=== PATIENT | female | born 1955 | race Caucasian/White ===

== ENCOUNTER 2018-05-25 09:56 | Inpatient (IN) | payer OTHER ==
[~2018-05-25] VITALS: Ht 154.9 cm; Wt 74.4 kg
[~2018-05-25 09:56] MED LIST: HCTZ; LEVOTHYROXINE
[2018-05-25] MEDS ORDERED: HYDR25TA6 PO (11:45)
[2018-05-25] MEDS ORDERED: METH10TA5 PO (11:45)
[2018-05-25] MEDS ORDERED: ASPIRIN 325 MG TAB PO ONE (12:30)
[2018-05-25] MEDS ORDERED: ACETAMINOPHEN 325 MG TAB PO PRN ×2 (13:00→13:30)
[2018-05-25] MEDS ORDERED: POTASSIUM CHLORIDE 50 ML IVPB ONE (13:00)
[2018-05-25] MEDS ORDERED: ONDANSETRON 4 MG INJ IV PRN ×2 (13:00→13:30)
--- NOTE | 2018-05-25 13:03 | HP ---
Date/Time of Note Date/Time of Note DATE: 05/25/18 TIME: 13:03 Assessment/Plan VTE Prophylaxis Pharmacological prophylaxis: LMWH Lines/Catheters IV [facility]ter Type [facility]from [facility] Saline Lock Assessment/Plan Hospital Course 62-year-old female with comorbidities including hypertension and hyperthyroidism who came to the emergency room with chief complaint of dizziness and was found to have underlying acute kidney injury, hypokalemia, and significant dysli pidemia. The patient will be admitted to inpatient setting for further treatment and evaluation. 1. Sudden onset of dizziness along with generalized body aches. -Etiology unclear. -Differentials include stroke, orthostasis, BPPV, ACS, versus others. -Brain CT scan negative. -Obtain brain MRI. -Obtain carotid Doppler study -Obtain orthostatic vital signs. -Obtain serial troponins and 2D echocardiogram. -Permissive hypertension until stroke is ruled out. -Neurology consult. 2. Acute kidney injury -Possible underlying chronic kidney disease -Gently hydrate the patient -Obtain renal ultrasound. -Avoid nephrotoxic medications. 3. Hypertension. -Treat blood pressure readings >220 until stroke is ruled out. -Monitor blood pressure trends. 4. Hyperthyroidism. -Resume Tapazole. 5. Dyslipidemia. -Start statins. Plan: The patient will be admitted to inpatient telemetry floor. The patient will be started on a low cholesterol diet. The patient will be started on DVT prophylaxis. The patient will remain a full code. Activities will be with assist. The rest of the patient's management will be based on the clinical course, inputs from consultants, and the results of diagnostic studies. Based on the patient's clinical presentation, she most probably requires at least 1 midnight's stay for further management and evaluation of her clinical presentation. The patient was seen in collaboration with Dr. Mendoza. Result Diagram: 05/25/18 1003 05/25/18 1003 Results 24hrs Laboratory Tests Test 05/25/18 10:03 05/25/18 11:25 White Blood Count 5.6 Red Blood Count 4.17 L Hemoglobin 13.1 Hematocrit 38.1 Mean Corpuscular Volume 91.4 Mean Corpuscular Hemoglobin 31.4 Mean Corpuscular Hemoglobin Concent 34.4 Red Cell Distribution Width 13.2 Platelet Count 202 Mean Platelet Volume 9.9 Immature Granulocytes % 0.500 H Neutrophils % 62.8 Lymphocytes % 26.2 Monocytes % 6.4 Eosinophils % 3.0 Basophils % 1.1 Nucleated Red Blood Cells % 0.0 Immature Granulocytes # 0.030 Neutrophils # 3.5 Lymphocytes # 1.5 Monocytes # 0.4 Eosinophils # 0.2 Basophils # 0.1 Nucleated Red Blood Cells # 0.0 Prothrombin Time 12.3 Prothrombin Time Ratio 1.0 INR International Normalized Ratio 0.90 Activated Partial Thromboplast Time 43.6 H Sodium Level 137 Potassium Level 3.0 L Chloride Level 91 L Carbon Dioxide Level 34 H Anion Gap 12 Blood Urea Nitrogen 14 Creatinine 1.21 H Est Glomerular Filtrat Rate mL/min 45 L Glucose Level 111 Hemoglobin A1c 6.2 H Calcium Level 10.3 H Troponin I < 0.012 Triglycerides Level 280 H Cholesterol Level 309 H LDL Cholesterol, Calculated 207 HDL Cholesterol 46 Cholesterol/HDL Ratio 6.7 Bedside Glucose 122 HPI/ROS Admit Date/Time Admit Date/Time Hx of Present Illness This is a 62-year-old female with comorbidities including hypertension and hyperthyroidism, who came to the emergency room with chief complaint of lightheadedness that started from the evening of 05/24/2018. The patient denied any precipitating factors. The patient was complaining of some nausea. The patient denied any vomiting. The patient denied any headache. The patient was complaining of generalized body aches and generalized body cramps. The patient had difficulty in ambulation. The patient denied any speech disturbances. She denied any sore throat, fevers, or chills. The patient denied any dyspnea, chest pain, or palpitations. The patient verbalized that she has been compliant with all her medications. In the emergency room, the patient's workup showed the patient has a creatinine of 1.21 with a GFR of 45. The patient was also noticed to be hypokalemic. The patient's troponins were negative. The patient's non-fasting lipid panel was unsatisfactory with triglyceride of 288, total cholesterol of 309, and LDL of 207. The patient's brain CT scan was negative for any acute findings. The patient's chest x-ray was negative. The patient's 12-lead EKG was showing normal sinus rhythm with right axis deviation. The patient was treated with a single dose of aspirin along with potassium supplements in the emergency room. The patient had a blood pressure of 194/108 upon arrival. ROS Constitutional: no complaints Eyes: no complaints ENT: no complaints Respiratory: no complaints Cardiovascular: lightheadedness Genitourinary: no complaints Musculoskeletal: other (Cramps all over the body.) Skin: no complaints Neurologic: dizziness Endocrine: no complaints Lymphatic: no complaints Psychological: no complaints Immunologic: no complaints PMH/Family/Social Past Medical History Medical History: hypertension, hyperthyroid Medications Current Medications Potassium Chloride 50 ml @ 25 mls/hr ONCE ONCE IVPB ; Start 05/25/18 at 13:00; Stop 05/25/18 at 14:59 Ondansetron HCl (Zofran Inj) 4 mg ER BRIDGE PRN IV NAUSEA/VOMITING; Start 05/25/18 at 13:00; Stop 05/26/18 at 12:59 Acetaminophen (Tylenol Tab) 650 mg ER BRIDGE PRN PO .MILD PAIN 1-3 OR TEMP; Start 05/25/18 at 13:00; Stop 05/26/18 at 12:59 Coded Allergies: No Known Allergy (Unverified , 05/25/18) Past Surgical History Past Surgical Hx: other (Tubal ligation) Social History Patient lives at home with family. Alcohol Use: none Smoking Status: Never smoker Drug Use: none Exam/Review of Systems Vital Signs Vitals Vital Signs Date Temp Pulse Resp B/P (MAP) Pulse Ox O2 O2 Flow FiO2 Time Delivery Rate 05/25/18 Nasal 2 12:24 Cannula 05/25/18 98.6 78 18 192/108 99 09:59 (136) Exam Exam General: Adequately build 62 year-old female lying in bed in no apparent distress. HEENT: Normocephalic, atraumatic. Eyes: Anicteric sclerae, conjunctivae clear. ENT: Nasal septum midline, oral mucosa moist. Neck supple, no JVD noticed. Respiratory: Bilaterally diminished breath sounds. No use of accessory muscles of respiration. No adventitious breath sounds. Cardiovascular: S1, S2 heard. No murmurs or gallops. Abdomen: Soft, nontender, and nondistended. Bowel sounds positive in all 4 quadrants. Genitourinary: Deferred. Extremities: No cyanosis, no clubbing, no edema. Peripheral pulses palpable. Neurologic: Cranial nerves II through XII grossly intact. The patient is awake, alert, and oriented. Bilateral upper extremity weakness. Skin: Normal skin turgor. No skin rashes. Additional Comments Brain CT IMPRESSION: No evidence of acute intracranial pathology. The brain is normal in appearance. CXR IMPRESSION: No evidence of acute cardiopulmonary process, allowing for low lung volumes and lordotic projection. 12-Lead EKG Normal sinus rhythm. Right axis deviation. BRANDIE VAZQUEZ NP May 25, 2018 13:03
[2018-05-25] MEDS ORDERED: NACL 0.9% 3 ML SYG IV SCH (13:30)
--- NOTE | 2018-05-25 13:54 | ERD ---
ER Documentation Chief Complaint Chief Complaint DIZZINESS SINCE YESTERDAY DENIES CP/SOB HPI Patient is a 62-year-old female with hypertension who presents with dizziness. She has headache and whole body pain. Her symptoms started yesterday. The symptoms have been constant. She has had no treatment as of yet. Her primary doctor is Dr. Stubbs. ROS All systems reviewed and are negative except as per history of present illness. Medications Home Meds Reported Medications Methimazole* (Methimazole*) 10 Mg Tablet, 10 MG PO TID, TAB 05/25/18 Hydrochlorothiazide* (Hydrochlorothiazide*) 25 Mg Tab, 25 MG PO DAILY, #30 TAB 05/25/18 Discontinued Reported Medications [Levothyroxine] No Conflict Check 01/07/15 [Hctz] No Conflict Check 01/07/15 Allergies Allergies: Coded Allergies: No Known Allergy (Unverified , 05/25/18) PMhx/Soc History of Surgery: Yes (TUBAL LIGATION) Anesthesia Reaction: No Hx Neurological Disorder: No Hx Respiratory Disorders: No Hx Cardiac Disorders: Yes (HTN) Hx Psychiatric Problems: No Hx Miscellaneous Medical Probl: No Hx Alcohol Use: No Hx Substance Use: No Hx Tobacco Use: No Smoking Status: Never smoker FmHx Family History: No diabetes Physical Exam Vitals Vital Signs Date Temp Pulse Resp B/P (MAP) Pulse Ox O2 O2 Flow FiO2 Time Delivery Rate 05/25/18 Nasal 2 12:24 Cannula 05/25/18 98.6 78 18 192/108 99 09:59 (136) Physical Exam Const: Moderate distress secondary to pain Head: Atraumatic Eyes: Normal Conjunctiva ENT: Normal External Ears, Nose and Mouth. Neck: Full range of motion. No meningismus. Resp: Clear to auscultation bilaterally Cardio: Regular rate and rhythm, no murmurs Abd: Soft, non tender, non distended. Normal bowel sounds Skin: No petechiae or rashes Back: No midline or flank tenderness Ext: No cyanosis, or edema Neur: Awake and alert, diffuse weakness, dizziness, cranial nerves II through XII are intact, no focal weakness seen Result Diagram: 05/25/18 1003 05/25/18 1003 Results 24 hrs Laboratory Tests Test 05/25/18 10:03 05/25/18 11:25 White Blood Count 5.6 10^3/ul Red Blood Count 4.17 10^6/ul Hemoglobin 13.1 g/dl Hematocrit 38.1 % Mean Corpuscular Volume 91.4 fl Mean Corpuscular Hemoglobin 31.4 pg Mean Corpuscular Hemoglobin Concent 34.4 g/dl Red Cell Distribution Width 13.2 % Platelet Count 202 10^3/UL Mean Platelet Volume 9.9 fl Immature Granulocytes % 0.500 % Neutrophils % 62.8 % Lymphocytes % 26.2 % Monocytes % 6.4 % Eosinophils % 3.0 % Basophils % 1.1 % Nucleated Red Blood Cells % 0.0 /100WBC Immature Granulocytes # 0.030 10^3/ul Neutrophils # 3.5 10^3/ul Lymphocytes # 1.5 10^3/ul Monocytes # 0.4 10^3/ul Eosinophils # 0.2 10^3/ul Basophils # 0.1 10^3/ul Nucleated Red Blood Cells # 0.0 10^3/ul Prothrombin Time 12.3 Sec Prothrombin Time Ratio 1.0 INR International Normalized Ratio 0.90 Activated Partial Thromboplast Time 43.6 Sec Sodium Level 137 mmol/L Potassium Level 3.0 mmol/L Chloride Level 91 mmol/L Carbon Dioxide Level 34 mmol/L Anion Gap 12 Blood Urea Nitrogen 14 mg/dl Creatinine 1.21 mg/dl Est Glomerular Filtrat Rate mL/min 45 mL/min Glucose Level 111 mg/dl Hemoglobin A1c 6.2 % Calcium Level 10.3 mg/dl Troponin I < 0.012 ng/ml Triglycerides Level 280 mg/dl Cholesterol Level 309 mg/dl LDL Cholesterol, Calculated 207 mg/dl HDL Cholesterol 46 mg/dl Cholesterol/HDL Ratio 6.7 RATIO Bedside Glucose 122 mg/dL Current Medications Medications Dose Sig/Jan Start Time Status Last (Trade) Ordered Route PRN Stop Time Admin Dose Reason Admin Aspirin 325 mg ONCE ONCE 05/25/18 DC 05/25/18 (Aspirin) PO 12:30 05/25/18 13:22 12:31 Potassium 50 ml @ 25 ONCE ONCE 05/25/18 Chloride mls/hr IVPB 13:00 05/25/18 14:59 Ondansetron 4 mg ER BRIDGE 05/25/18 HCl (Zofran PRN IV 13:00 05/26/18 Inj) NAUSEA/VOMITI 12:59 NG 650 mg ER BRIDGE 05/25/18 Acetaminophen PRN PO 13:00 05/26/18 (Tylenol .MILD PAIN 12:59 Tab) 1-3 OR TEMP IV Flush 3 ml PER 05/25/18 (NS 3 ml) PROTOCOL IV 13:30 Ondansetron 4 mg Q6H PRN 05/25/18 HCl (Zofran IV 13:30 Inj) NAUSEA/VOMITI NG Aspirin 81 mg DAILY PO 05/26/18 (Aspirin) 09:00 650 mg Q6H PRN 05/25/18 Acetaminophen PO .PAIN 1-3 13:30 (Tylenol OR TEMP Tab) Enoxaparin 40 mg DAILY SC 05/26/18 Sodium 09:00 (Lovenox) 80 mg HS PO 05/25/18 Atorvastatin 21:00 Calcium (Lipitor) Procedures/MDM CT brain read by radiology EKG read by me: Rate/Rhythm: Regular rate and rhythm at a normal rate Intervals: Normal Impression: No evidence of ischemia or arrhythmia Patient is a 62-year-old female who presents with dizziness. I am concerned for possible posterior circulation stroke. She had a bedside swallow evaluation and NIH stroke scale performed by nursing. She was given aspirin after CT brain shows no sign of bleed. I doubt intracranial hemorrhage or mass. The patient will be admitted to the telemetry floor for further evaluation. The patient will be admitted to the panel team. She was found to have hypokalemia with a potassium of 3.0 and was given IV potassium. She is outside the window for TPA as she said that her symptoms started yesterday and there was no clear time of onset. She is also not a candidate for interventional procedure with an unclear time of onset and likely greater than 24 hours since the start of symptoms. Critical Care: Time: 35 minutes excluding all billable procedures. Treatments/Evaluations: Close monitoring and treatment of unstable vital signs, cardiorespiratory, and neurologic status, while maintaining tight balance of fluid, respiratory, and cardiac interventions. Departure Diagnosis: Primary Impression: Hypokalemia Additional Impression: Stroke CVA mechanism: unspecified Qualified Codes: I63.9 - Cerebral infarction, unspecified TG BOWER MD May 25, 2018 13:54
[2018-05-25] MEDS ORDERED: POTASSIUM CHLORIDE 100 ML IVPB SCH (14:00)
--- NOTE | 2018-05-25 15:58 | CONS ---
Assessment/Plan Assessment/Plan Hospital Course 62 F c/ reported Hx of HTN, who presents for evaluation of dizziness...for which neurology is consulted.. The clinical picture is consistent w/ vertigo...the underlying etiology of which could very well be a acute cerebrovascular event.. Peripheral vertigo is a Dx of exclusion... Head CT is unrevealing LDL 207 (nonfasting) P: MRI brain for further characterization asa/lipitor daily pending the above Add fasting lipid panel to am labs..., UA, UDS Permissive HTN to 220/110 today.. Trial of low dose meclizine tid for now.. Other management per primary Will follow clinically, to recommend additional neurologic studies as necessary Consultation Date/Type/Reason Admit Date/Time Type of Consult Neurology Reason for Consultation vertigo Requesting Provider: BRANDIE VAZQUEZ NP Date/Time of Note DATE: 05/25/18 TIME: 15:48 Hx of Present Illness 62 yo F with hx of HTN and hypothyroidism who presented to the ED for evaluation of headache and vertigo. History was obtained from pt and chart review. The pt states that her dizziness started around 11pm last night when trying to get up to go to the restroom. She states that it came on suddenly, and described it as if the room was spinning. She stated that when her sx continued to persist, she had her bring her to the ED. She states that the dizziness is constant, and made worse with head turning and position changes. Denies any alleviating factors. She also endorses abdominal cramping and generalized weakness. She denies headache at this time, confusion, vision or speech changes, numbness or tingling. She also denies past episodes of vertigo, recent illness, illicit drug use or changes in medications. The pt is also hypertensive on arrival (192/108).. It is additionally elsewhere noted: HPI Patient is a 62-year-old female with hypertension who presents with dizziness. She has headache and whole body pain. Her symptoms started yesterday. The symptoms have been constant. She has had no treatment as of yet. Her primary doctor is Dr. Stubbs. negative unless noted otherwise in HPI Exam/Review of Systems Exam Vitals Vital Signs Date Temp Pulse Resp B/P (MAP) Pulse Ox O2 O2 Flow FiO2 Time Delivery Rate 05/25/18 57 17 168/103 98 Room Air 14:32 (124) 05/25/18 98.7 14:05 05/25/18 2 12:24 Exam PE: Gen Appearance: No Apparent Distress HEENT: Normocephalic Cardiovascular: Regular rate Abdomen: Soft Extremities: Dry NE: The patient was alert and oriented.. Language was normal. Fund of knowledge was normal. Pupils were equal and reactive to light. There was no afferent pupillary defect. Visual reeves were normal. Funduscopic examination was limited. Extra-ocular movements were full. Ptosis was absent. There was no nystagmus. Facial sensation was normal. Face was symmetric with normal strength. Hearing was intact. Palate movements were normal. Neck strength was normal. There was normal tongue bulk and speed of movement. Tone was normal. Muscle bulk was normal. I did not see fasciculations. Moderate, generalized weakness was present. Vibration sensation was normal. Temperature and pinprick sensation was normal. Rapid alternating movements were normal. There was no dysmetria. There was no intention tremor. Gait was deferred due to bedrest. Arm and leg reflexes were 2+ and symmetric. Ahuja's sign was absent. Plantar responses were flexor. Results Result Diagram: 05/25/18 1003 05/25/18 1003 Results 24hrs Laboratory Tests Test 05/25/18 10:03 05/25/18 11:25 White Blood Count 5.6 Red Blood Count 4.17 L Hemoglobin 13.1 Hematocrit 38.1 Mean Corpuscular Volume 91.4 Mean Corpuscular Hemoglobin 31.4 Mean Corpuscular Hemoglobin Concent 34.4 Red Cell Distribution Width 13.2 Platelet Count 202 Mean Platelet Volume 9.9 Immature Granulocytes % 0.500 H Neutrophils % 62.8 Lymphocytes % 26.2 Monocytes % 6.4 Eosinophils % 3.0 Basophils % 1.1 Nucleated Red Blood Cells % 0.0 Immature Granulocytes # 0.030 Neutrophils # 3.5 Lymphocytes # 1.5 Monocytes # 0.4 Eosinophils # 0.2 Basophils # 0.1 Nucleated Red Blood Cells # 0.0 Prothrombin Time 12.3 Prothrombin Time Ratio 1.0 INR International Normalized Ratio 0.90 Activated Partial Thromboplast Time 43.6 H Sodium Level 137 Potassium Level 3.0 L Chloride Level 91 L Carbon Dioxide Level 34 H Anion Gap 12 Blood Urea Nitrogen 14 Creatinine 1.21 H Est Glomerular Filtrat Rate mL/min 45 L Glucose Level 111 Hemoglobin A1c 6.2 H Calcium Level 10.3 H Troponin I < 0.012 Triglycerides Level 280 H Cholesterol Level 309 H LDL Cholesterol, Calculated 207 HDL Cholesterol 46 Cholesterol/HDL Ratio 6.7 Bedside Glucose 122 Medications Medication Current Medications Ondansetron HCl (Zofran Inj) 4 mg ER BRIDGE PRN IV NAUSEA/VOMITING; Start 05/25/18 at 13:00; Stop 05/26/18 at 12:59 Acetaminophen (Tylenol Tab) 650 mg ER BRIDGE PRN PO .MILD PAIN 1-3 OR TEMP; Start 05/25/18 at 13:00; Stop 05/26/18 at 12:59 IV Flush (NS 3 ml) 3 ml PER PROTOCOL IV ; Start 05/25/18 at 13:30 Ondansetron HCl (Zofran Inj) 4 mg Q6H PRN IV NAUSEA/VOMITING; Start 05/25/18 at 13:30 Aspirin (Aspirin) 81 mg DAILY PO ; Start 05/26/18 at 09:00 Acetaminophen (Tylenol Tab) 650 mg Q6H PRN PO .PAIN 1-3 OR TEMP; Start 05/25/18 at 13:30 Enoxaparin Sodium (Lovenox) 40 mg DAILY SC ; Start 05/26/18 at 09:00 Atorvastatin Calcium (Lipitor) 80 mg HS PO ; Start 05/25/18 at 21:00 Potassium Chloride 100 ml @ 50 mls/hr ONCE IVPB Last administered on 05/25/18at 14:21; Admin Dose 50 MLS/HR; Start 05/25/18 at 14:00; Stop 05/25/18 at 15:59 Sodium Chloride 1,000 ml @ 75 mls/hr [id number] IV ; Start 05/25/18 at 16:00; Status UNV Methimazole (Tapazole) 10 mg TID PO ; Start 05/25/18 at 21:00; Status UNV Past Medical History reviewed Home Meds Reported Medications Methimazole* (Methimazole*) 10 Mg Tablet, 10 MG PO TID, TAB 05/25/18 Hydrochlorothiazide* (Hydrochlorothiazide*) 25 Mg Tab, 25 MG PO DAILY, #30 TAB 05/25/18 Discontinued Reported Medications [Levothyroxine] No Conflict Check 01/07/15 [Hctz] No Conflict Check 01/07/15 Medications Current Medications Ondansetron HCl (Zofran Inj) 4 mg ER BRIDGE PRN IV NAUSEA/VOMITING; Start 05/25/18 at 13:00; Stop 05/26/18 at 12:59 Acetaminophen (Tylenol Tab) 650 mg ER BRIDGE PRN PO .MILD PAIN 1-3 OR TEMP; Start 05/25/18 at 13:00; Stop 05/26/18 at 12:59 IV Flush (NS 3 ml) 3 ml PER PROTOCOL IV ; Start 05/25/18 at 13:30 Ondansetron HCl (Zofran Inj) 4 mg Q6H PRN IV NAUSEA/VOMITING; Start 05/25/18 at 13:30 Aspirin (Aspirin) 81 mg DAILY PO ; Start 05/26/18 at 09:00 Acetaminophen (Tylenol Tab) 650 mg Q6H PRN PO .PAIN 1-3 OR TEMP; Start 05/25/18 at 13:30 Enoxaparin Sodium (Lovenox) 40 mg DAILY SC ; Start 05/26/18 at 09:00 Atorvastatin Calcium (Lipitor) 80 mg HS PO ; Start 05/25/18 at 21:00 Potassium Chloride 100 ml @ 50 mls/hr ONCE IVPB Last administered on 05/25/18at 14:21; Admin Dose 50 MLS/HR; Start 05/25/18 at 14:00; Stop 05/25/18 at 15:59 Sodium Chloride 1,000 ml @ 75 mls/hr [id number] IV ; Start 05/25/18 at 16:00; Status UNV Methimazole (Tapazole) 10 mg TID PO ; Start 05/25/18 at 21:00; Status UNV Allergies: Coded Allergies: No Known Allergy (Unverified , 05/25/18) Past Surgical History reviewed Social History reviewed Smoking Status: Never smoker DALIA IBARRA NP May 25, 2018 15:58 MARI WAN May 25, 2018 17:00
[2018-05-25] MEDS ORDERED: hydrALAzine 20 MG INJ IV PRN (16:00)
[2018-05-25] MEDS ORDERED: SOD CHLORIDE 0.9% 1,000 ML IV SCH (16:00)
[2018-05-25 19:35] VITALS: BP 171/98; PULSE 60; RESP 18
[2018-05-25 19:49] VITALS: PULSE 74
[2018-05-25 20:00] VITALS: PULSE 66
[2018-05-25] MEDS ORDERED: ATORVASTATIN 80 MG TAB PO SCH (21:00)
[2018-05-25] MEDS: MECLIZINE 12.5 MG TAB PO SCH (21:05)
[2018-05-25 22:21] VITALS: PULSE 62
[2018-05-25 23:17] VITALS: PULSE 68
[2018-05-25 23:58] VITALS: BP 134/80; PULSE 61; RESP 18
[2018-05-26] VITALS (14 sets, daily range): BP systolic 135–164; BP diastolic 90–103; PULSE 60–82; RESP 16–18
[2018-05-26] MEDS: METHIMAZOLE 5 MG TAB PO SCH ×2 (03:18→08:28)
[2018-05-26] MEDS: ASPIRIN 81 MG TAB PO SCH (08:28)
[2018-05-26] MEDS: MECLIZINE 12.5 MG TAB PO SCH ×3 (08:28→20:48)
[2018-05-26] MEDS: ENOXAPARIN 40 MG/0.4 ML SYG SC SCH (08:44)
--- NOTE | 2018-05-26 13:02 | PN ---
Date/Time of Note Date/Time of Note DATE: 05/26/18 TIME: 13:00 Assessment/Plan VTE Prophylaxis Risk score (from Ns)>0 risk: 4 SCD applied (from Nsg): Yes Pharmacological prophylaxis: LMWH Lines/Catheters IV Catheter Type (from Nrs): Saline Lock Urinary Cath still in place: No Assessment/Plan Hospital Course SUBJECTIVE: The patient verbalized that the dizziness has improved. OBJECTIVE: Physical Exam General: Adequately build 62 year-old female lying in bed in no apparent distress. HEENT: Normocephalic, atraumatic. Eyes: Anicteric sclerae, conjunctivae clear. ENT: Nasal septum midline, oral mucosa moist. Neck supple, no JVD noticed. Respiratory: Bilaterally diminished breath sounds. No use of accessory muscles of respiration. No adventitious breath sounds. Cardiovascular: S1, S2 heard. No murmurs or gallops. Abdomen: Soft, nontender, and nondistended. Bowel sounds positive in all 4 quadrants. Genitourinary: Deferred. Extremities: No cyanosis, no clubbing, no edema. Peripheral pulses palpable. Neurologic: Cranial nerves II through XII grossly intact. The patient is awake, alert, and oriented. Bilateral upper extremity weakness. Skin: Normal skin turgor. No skin rashes. Labs & Vitals per chart ASSESSMENT & PLAN 62-year-old female with comorbidities including hypertension and hyperthyroidism who came to the emergency room with chief complaint of dizziness and was found to have underlying acute kidney injury, hypokalemia, and significant dyslipidemia. The patient was admitted to inpatient setting for further treatment and evaluation. 1. Sudden onset of dizziness along with generalized body aches. -Etiology unclear. -Neurology following. -Brain CT and MRI negative. -No evidence of any orthostatic hypotension. -Pending 2D echocardiogram. -Carotid Doppler study negative for any hemodynamically significant stenosis. -Continue meclizine for underlying vertigo. -Continue physical therapy. 2. Rhabdomyolysis. -Continue IV hydration. -Hold statins. 3. Dyslipidemia. -Fasting lipid panel showing elevated triglycerides, elevated total cholesterol, and significantly high LDL. -Statin on hold because of underlying rhabdomyolysis. 4. Acute kidney injury -Improving. -Renal ultrasound negative for any medical renal disease. -Avoid nephrotoxic medications. 5. Hypertension. -Resume antihypertensives and stroke has been ruled out. 6. Reported history of hyperthyroidism. -Labs show evidence of hypothyroidism -Hold Tapazole. -Obtain endocrinology consult. 7. Prediabetes. -Hemoglobin A1c 6.2 -Monitor glycemic trends. -Recommend low carbohydrate diet. 8. Fluids, electrolytes, and nutrition. -Low-cholesterol diet. 9. DVT prophylaxis. -Subcutaneous Lovenox. 10. Plan. -Continue aspirin. -Hold statins because of underlying rhabdomyolysis -Continue IV hydration -Obtain endocrinology evaluation. -Continue physical therapy. Plan of care was explained to the patient with the help of a licensed plumber. The patient was seen in collaboration with Dr. Mendoza. Result Diagram: 05/26/18 0500 05/26/18 0500 Results 24hrs Laboratory Tests Test 05/25/18 16:21 05/25/18 16:40 05/26/18 05:00 Magnesium Level 2.0 2.2 Creatine Kinase 1314 H 1136 H Creatine Kinase Index 0.9 1.0 Creatinine Kinase MB (Mass) 12.30 H 10.80 H Troponin I < 0.012 < 0.012 B-Type Natriuretic Peptide 37 Thyroid Stimulating Hormone (TSH) 303.000 H Free Thyroxine < 0.07 L Urine Color STRAW Urine Clarity CLEAR Urine pH 8 Urine Specific [place] 1.005 Urine Ketones NEGATIVE Urine Nitrite NEGATIVE Urine Bilirubin NEGATIVE Urine Urobilinogen 0.2 E.U./dL Urine Leukocyte Esterase 2+ H Urine Microscopic RBC 1 Urine Microscopic WBC 2 Urine Bacteria FEW A Urine Hemoglobin NEGATIVE Urine Glucose NEGATIVE Urine Total Protein 1+ Urine Opiates Screen Negative Urine Barbiturates Negative Urine Amphetamines Screen Negative Urine Benzodiazepines Screen Negative Urine Cocaine Screen Negative Urine Cannabinoids Negative White Blood Count 6.8 # Red Blood Count 4.26 Hemoglobin 13.5 Hematocrit 39.0 Mean Corpuscular Volume 91.5 Mean Corpuscular Hemoglobin 31.7 Mean Corpuscular Hemoglobin Concent 34.6 Red Cell Distribution Width 13.2 Platelet Count 204 Mean Platelet Volume 10.1 Immature Granulocytes % 0.100 Neutrophils % 55.0 Lymphocytes % 31.1 Monocytes % 8.1 Eosinophils % 4.7 Basophils % 1.0 Nucleated Red Blood Cells % 0.0 Immature Granulocytes # 0.010 Neutrophils # 3.7 Lymphocytes # 2.1 Monocytes # 0.6 Eosinophils # 0.3 Basophils # 0.1 Nucleated Red Blood Cells # 0.0 Sodium Level 139 Potassium Level 3.2 L Chloride Level 99 Carbon Dioxide Level 28 Anion Gap 12 Blood Urea Nitrogen 15 Creatinine 1.25 H Est Glomerular Filtrat Rate mL/min 43 L Glucose Level 101 Calcium Level 10.0 Phosphorus Level 3.7 Triglycerides Level 294 H Cholesterol Level 304 H LDL Cholesterol, Calculated 203 HDL Cholesterol 42 Cholesterol/HDL Ratio 7.2 Exam/Review of Systems Exam Vitals Vital Signs Date Temp Pulse Resp B/P (MAP) Pulse Ox O2 O2 Flow FiO2 Time Delivery Rate 05/26/18 98.7 73 18 135/92 98 Room Air 11:49 (106) 05/25/18 2 12:24 Results Results 24hrs Laboratory Tests Test 05/25/18 16:21 05/25/18 16:40 05/26/18 05:00 Magnesium Level 2.0 2.2 Creatine Kinase 1314 H 1136 H Creatine Kinase Index 0.9 1.0 Creatinine Kinase MB (Mass) 12.30 H 10.80 H Troponin I < 0.012 < 0.012 B-Type Natriuretic Peptide 37 Thyroid Stimulating Hormone (TSH) 303.000 H Free Thyroxine < 0.07 L Urine Color STRAW Urine Clarity CLEAR Urine pH 8 Urine Specific [place] 1.005 Urine Ketones NEGATIVE Urine Nitrite NEGATIVE Urine Bilirubin NEGATIVE Urine Urobilinogen 0.2 E.U./dL Urine Leukocyte Esterase 2+ H Urine Microscopic RBC 1 Urine Microscopic WBC 2 Urine Bacteria FEW A Urine Hemoglobin NEGATIVE Urine Glucose NEGATIVE Urine Total Protein 1+ Urine Opiates Screen Negative Urine Barbiturates Negative Urine Amphetamines Screen Negative Urine Benzodiazepines Screen Negative Urine Cocaine Screen Negative Urine Cannabinoids Negative White Blood Count 6.8 # Red Blood Count 4.26 Hemoglobin 13.5 Hematocrit 39.0 Mean Corpuscular Volume 91.5 Mean Corpuscular Hemoglobin 31.7 Mean Corpuscular Hemoglobin Concent 34.6 Red Cell Distribution Width 13.2 Platelet Count 204 Mean Platelet Volume 10.1 Immature Granulocytes % 0.100 Neutrophils % 55.0 Lymphocytes % 31.1 Monocytes % 8.1 Eosinophils % 4.7 Basophils % 1.0 Nucleated Red Blood Cells % 0.0 Immature Granulocytes # 0.010 Neutrophils # 3.7 Lymphocytes # 2.1 Monocytes # 0.6 Eosinophils # 0.3 Basophils # 0.1 Nucleated Red Blood Cells # 0.0 Sodium Level 139 Potassium Level 3.2 L Chloride Level 99 Carbon Dioxide Level 28 Anion Gap 12 Blood Urea Nitrogen 15 Creatinine 1.25 H Est Glomerular Filtrat Rate mL/min 43 L Glucose Level 101 Calcium Level 10.0 Phosphorus Level 3.7 Triglycerides Level 294 H Cholesterol Level 304 H LDL Cholesterol, Calculated 203 HDL Cholesterol 42 Cholesterol/HDL Ratio 7.2 Medications Medication Current Medications Ondansetron HCl (Zofran Inj) 4 mg ER BRIDGE PRN IV NAUSEA/VOMITING; Start 05/25/18 at 13:00; Stop 05/26/18 at 12:59 Acetaminophen (Tylenol Tab) 650 mg ER BRIDGE PRN PO .MILD PAIN 1-3 OR TEMP; Start 05/25/18 at 13:00; Stop 05/26/18 at 12:59 IV Flush (NS 3 ml) 3 ml PER PROTOCOL IV ; Start 05/25/18 at 13:30 Ondansetron HCl (Zofran Inj) 4 mg Q6H PRN IV NAUSEA/VOMITING; Start 05/25/18 at 13:30 Aspirin (Aspirin) 81 mg DAILY PO Last administered on 05/26/18 08:28; Admin Dose 81 MG; Start 05/26/18 at 09:00 Acetaminophen (Tylenol Tab) 650 mg Q6H PRN PO .PAIN 1-3 OR TEMP; Start 05/25/18 at 13:30 Enoxaparin Sodium (Lovenox) 40 mg DAILY SC Last administered on 05/26/18 08:44; Admin Dose 40 MG; Start 05/26/18 at 09:00 Atorvastatin Calcium (Lipitor) 80 mg HS PO Last administered on 05/25/18at 21:05; Admin Dose 80 MG; Start 05/25/18 at 21:00 Methimazole (Tapazole) 10 mg TID PO Last administered on 05/26/18 08:28; Admin Dose 10 MG; Start 05/25/18 at 21:00 Hydralazine HCl (Apresoline) 10 mg Q6H PRN IV SBP>220; Start 05/25/18 at 16:00 Meclizine HCl (Antivert) 12.5 mg TID PO Last administered on 05/26/18 08:28; Admin Dose 12.5 MG; Start 05/25/18 at 21:00 BRANDIE VAZQUEZ NP May 26, 2018 13:02
--- NOTE | 2018-05-26 14:27 | CONS ---
Assessment/Plan Assessment/Plan Problems: (1) Myxedema Status: Acute Comment: What is unclear is what her baseline thyroid status and an untreated situation. Regardless she needs to be treated with levothyroxine at this time as she has myxedema. I will get her started on treatment this is a follow-up that would be the vexing piece of this. Is treated by Dr. Momin's at [facility]. (2) Hyperlipidemia Status: Acute Comment: This is due to myxedema (3) HTN (hypertension) Status: Acute Comment: This is aggravated by myxedema Qualifiers: Qualified Codes: I10 - Essential (primary) hypertension Consultation Date/Type/Reason Admit Date/Time Date of Consultation: May 26, 2018 Type of Consult Endocrinology Reason for Consultation Myxedema Requesting Provider: BRANDIE VAZQUEZ NP Date/Time of Note DATE: 05/26/18 TIME: 14:20 Hx of Present Illness Patient reports a 10-year history of being treated for thyroid disease. She is unclear on the medications but recently has been on methimazole 10 mg once a day in the morning. She is otherwise not able to give meaningful information. I checked with [facility] and found the following information. She had TSH on January 17 of 0.05 on January 19 0.09 in February 06 0.15 her free T4 on those respective dates was 1.5 then 1.4 then 1.2 she has a thyroid positive thyroid peroxidase antibody at this time she is admitted having gone into myxedema state on the methimazole. Constitutional: no complaints Eyes: no complaints ENT: no complaints Endocrine: other (She has essentially has all symptoms consistent with hypoth yroidism. Curiously she has no recollection of any symptoms consistent with thyrotoxicosis) Past Medical History Medical History: high cholesterol, hypertension, hyperthyroid Home Meds Reported Medications Methimazole* (Methimazole*) 10 Mg Tablet, 10 MG PO TID, TAB 05/25/18 Hydrochlorothiazide* (Hydrochlorothiazide*) 25 Mg Tab, 25 MG PO DAILY, #30 TAB 05/25/18 Discontinued Reported Medications [Levothyroxine] No Conflict Check 01/07/15 [Hctz] No Conflict Check 01/07/15 Medications Current Medications IV Flush (NS 3 ml) 3 ml PER PROTOCOL IV ; Start 05/25/18 at 13:30 Ondansetron HCl (Zofran Inj) 4 mg Q6H PRN IV NAUSEA/VOMITING; Start 05/25/18 at 13:30 Aspirin (Aspirin) 81 mg DAILY PO Last administered on 05/26/18at 08:28; Admin Dose 81 MG; Start 05/26/18 at 09:00 Acetaminophen (Tylenol Tab) 650 mg Q6H PRN PO .PAIN 1-3 OR TEMP; Start 05/25/18 at 13:30 Enoxaparin Sodium (Lovenox) 40 mg DAILY SC Last administered on 05/26/18at 08:44; Admin Dose 40 MG; Start 05/26/18 at 09:00 Atorvastatin Calcium (Lipitor) 80 mg HS PO Last administered on 05/25/18at 21:05; Admin Dose 80 MG; Start 05/25/18 at 21:00; Status Hold Hydralazine HCl (Apresoline) 10 mg Q6H PRN IV SBP>160; Start 05/25/18 at 16:00 Meclizine HCl (Antivert) 12.5 mg TID PO Last administered on 05/26/18at 08:28; Admin Dose 12.5 MG; Start 05/25/18 at 21:00 Sodium Chloride 1,000 ml @ 75 mls/hr [id number] IV ; Start 05/26/18 at 13:00 Amlodipine Besylate (Norvasc) 2.5 mg DAILY PO ; Start 05/26/18 at 13:30 Allergies: Coded Allergies: No Known Allergy (Unverified , 05/25/18) Past Surgical History Past Surgical Hx: other (Tubal ligation) Social History Alcohol Use: none Smoking Status: Never smoker Drug Use: none Exam/Review of Systems Exam Vitals Vital Signs Date Temp Pulse Resp B/P (MAP) Pulse Ox O2 O2 Flow FiO2 Time Delivery Rate 05/26/18 82 12:01 05/26/18 98.7 18 135/92 98 Room Air 11:49 (106) 05/25/18 2 12:24 Exam Gravelly voice Constitutional: alert, oriented Neck: supple, thyromegaly (Firm thyroid gland without nodules) Respiratory: clear to auscultation, normal air movement Cardiovascular: regular rate and rhythm, nl pulses Gastrointestinal: soft, nl liver, spleen, non-tender Skin: other (Thickened and dry) Results Result Diagram: 05/26/18 0500 05/26/18 0500 Results 24hrs Laboratory Tests Test 05/25/18 16:21 05/25/18 16:40 05/26/18 05:00 Magnesium Level 2.0 2.2 Creatine Kinase 1314 H 1136 H Creatine Kinase Index 0.9 1.0 Creatinine Kinase MB (Mass) 12.30 H 10.80 H Troponin I < 0.012 < 0.012 B-Type Natriuretic Peptide 37 Thyroid Stimulating Hormone (TSH) 303.000 H Free Thyroxine < 0.07 L Urine Color STRAW Urine Clarity CLEAR Urine pH 8 Urine Specific [place] 1.005 Urine Ketones NEGATIVE Urine Nitrite NEGATIVE Urine Bilirubin NEGATIVE Urine Urobilinogen 0.2 E.U./dL Urine Leukocyte Esterase 2+ H Urine Microscopic RBC 1 Urine Microscopic WBC 2 Urine Bacteria FEW A Urine Hemoglobin NEGATIVE Urine Glucose NEGATIVE Urine Total Protein 1+ Urine Opiates Screen Negative Urine Barbiturates Negative Urine Amphetamines Screen Negative Urine Benzodiazepines Screen Negative Urine Cocaine Screen Negative Urine Cannabinoids Negative White Blood Count 6.8 # Red Blood Count 4.26 Hemoglobin 13.5 Hematocrit 39.0 Mean Corpuscular Volume 91.5 Mean Corpuscular Hemoglobin 31.7 Mean Corpuscular Hemoglobin Concent 34.6 Red Cell Distribution Width 13.2 Platelet Count 204 Mean Platelet Volume 10.1 Immature Granulocytes % 0.100 Neutrophils % 55.0 Lymphocytes % 31.1 Monocytes % 8.1 Eosinophils % 4.7 Basophils % 1.0 Nucleated Red Blood Cells % 0.0 Immature Granulocytes # 0.010 Neutrophils # 3.7 Lymphocytes # 2.1 Monocytes # 0.6 Eosinophils # 0.3 Basophils # 0.1 Nucleated Red Blood Cells # 0.0 Sodium Level 139 Potassium Level 3.2 L Chloride Level 99 Carbon Dioxide Level 28 Anion Gap 12 Blood Urea Nitrogen 15 Creatinine 1.25 H Est Glomerular Filtrat Rate mL/min 43 L Glucose Level 101 Calcium Level 10.0 Phosphorus Level 3.7 Triglycerides Level 294 H Cholesterol Level 304 H LDL Cholesterol, Calculated 203 HDL Cholesterol 42 Cholesterol/HDL Ratio 7.2 Medications Medication Current Medications IV Flush (NS 3 ml) 3 ml PER PROTOCOL IV ; Start 05/25/18 at 13:30 Ondansetron HCl (Zofran Inj) 4 mg Q6H PRN IV NAUSEA/VOMITING; Start 05/25/18 at 13:30 Aspirin (Aspirin) 81 mg DAILY PO Last administered on 05/26/18at 08:28; Admin Dose 81 MG; Start 05/26/18 at 09:00 Acetaminophen (Tylenol Tab) 650 mg Q6H PRN PO .PAIN 1-3 OR TEMP; Start 05/25/18 at 13:30 Enoxaparin Sodium (Lovenox) 40 mg DAILY SC Last administered on 05/26/18at 08:44; Admin Dose 40 MG; Start 05/26/18 at 09:00 Atorvastatin Calcium (Lipitor) 80 mg HS PO Last administered on 05/25/18at 21:05; Admin Dose 80 MG; Start 05/25/18 at 21:00; Status Hold Hydralazine HCl (Apresoline) 10 mg Q6H PRN IV SBP>160; Start 05/25/18 at 16:00 Meclizine HCl (Antivert) 12.5 mg TID PO Last administered on 05/26/18at 08:28; Admin Dose 12.5 MG; Start 05/25/18 at 21:00 Sodium Chloride 1,000 ml @ 75 mls/hr [id number] IV ; Start 05/26/18 at 13:00 Amlodipine Besylate (Norvasc) 2.5 mg DAILY PO ; Start 05/26/18 at 13:30 BRENTON ARANGO MD May 26, 2018 14:27
[2018-05-26] MEDS: SOD CHLORIDE 0.9% 1,000 ML IV SCH (14:30)
[2018-05-26] MEDS: AMLODIPINE 2.5 MG TAB PO SCH (14:37)
--- NOTE | 2018-05-26 15:59 | CONS ---
Assessment/Plan Assessment/Plan Hospital Course 62 F c/ reported Hx of HTN, who presents for evaluation of dizziness...for which neurology is consulted.. The clinical picture is consistent w/ peripheral vertigo.. MRI brain w/ and w/o contrast is reassuringly negative for acute or otherwise significant intracranial pathology. P: Continued medical management per primary Will sign off for now; please call w/ ?s Consultation Date/Type/Reason Admit Date/Time May 25, 2018 at 12:48 Type of Consult Neurology Reason for Consultation dizziness Requesting Provider: BRANDIE VAZQUEZ NP Date/Time of Note DATE: 05/26/18 TIME: 15:56 24 HR Interval Summary Free Text/Dictation s/p MRI brain Exam Vital Signs Vitals Vital Signs Date Temp Pulse Resp B/P (MAP) Pulse Ox O2 O2 Flow FiO2 Time Delivery Rate 05/26/18 98.3 63 16 150/91 93 Room Air 15:55 (110) 05/25/18 2 12:24 Exam PE: Gen Appearance: No Apparent Distress HEENT: Normocephalic Cardiovascular: Regular rate Abdomen: Soft Extremities: Dry NE: The patient was alert and oriented.. Language was normal. Fund of knowledge was normal. Pupils were equal and reactive to light. There was no afferent pupillary defect. Visual reeves were normal. Funduscopic examination was limited. Extra-ocular movements were full. Ptosis was absent. There was no nystagmus. Facial sensation was normal. Face was symmetric with normal strength. Hearing was intact. Palate movements were normal. Neck strength was normal. There was normal tongue bulk and speed of movement. Tone was normal. Muscle bulk was normal. I did not see fasciculations. Moderate, generalized weakness was present. Vibration sensation was normal. Temperature and pinprick sensation was normal. Rapid alternating movements were normal. There was no dysmetria. There was no intention tremor. Gait was deferred due to bedrest. Arm and leg reflexes were 2+ and symmetric. Ahuja's sign was absent. Plantar responses were flexor. MARI WAN May 26, 2018 15:59
[2018-05-26] MEDS ORDERED: LEVOTHYROXINE 500 MCG VIAL IV ONE (16:00)
[2018-05-26] MEDS ORDERED: LEVOTHYROXINE 200 MCG VIAL IV SCH (16:00)
[2018-05-26] MEDS ORDERED: LEVOTHYROXINE 100 MCG VIAL IV SCH (16:00)
[2018-05-26] MEDS ORDERED: POTASSIUM CHLORIDE (SR) 20 MEQ TAB PO STA (16:08)
[2018-05-27] VITALS (10 sets, daily range): BP systolic 117–164; BP diastolic 67–110; PULSE 66–94; RESP 16–20; Ht 154.9 cm; Wt 74.4 kg
[2018-05-27] MEDS: SOD CHLORIDE 0.9% 1,000 ML IV SCH (04:05)
[2018-05-27] MEDS ORDERED: LEVOTHYROXINE 150 MCG TAB PO SCH (06:00)
[2018-05-27] MEDS: ASPIRIN 81 MG TAB PO SCH (08:32)
[2018-05-27] MEDS: MECLIZINE 12.5 MG TAB PO SCH ×2 (08:32→12:39)
[2018-05-27] MEDS: AMLODIPINE 2.5 MG TAB PO SCH (08:33)
[2018-05-27] MEDS: ENOXAPARIN 40 MG/0.4 ML SYG SC SCH (08:39)
--- NOTE | 2018-05-27 11:11 | CONS ---
Assessment/Plan Assessment/Plan Problems: (1) Myxedema Status: Acute Comment: The question of what her thyroid status is from several months ago was not 100% clear. Clearly she had suppressed TSH based on the labs I was able to obtain by calling the [facility]. However right now she is brenden dashawn myxedema. I would have her on thyroid but after 4 weeks the thyroid blood tests should be rechecked and she may need to be transitioned back over to methimazole at a much lower dose than she was on at 10 mg a day versus 10 mg 3 times a day. Will require coordination with her primary care physicians. (2) Abnormal CPK Status: Acute Comment: This is secondary to myxedema not sign of pathology (3) Hyperlipidemia Status: Acute Comment: This is significantly aggravated by the myxedema (4) HTN (hypertension) Status: Acute Comment: This is worsened by myxedema Qualifiers: Hypertension type: essential hypertension Qualified Codes: I10 - Essential (primary) hypertension Consultation Date/Type/Reason Admit Date/Time May 25, 2018 at 12:48 Initial Consult Date 05/26/18 Type of Consult Endocrinology Reason for Consultation Myxedema; history of thyroid disorder in the past etiology not quite clear. Requesting Provider: BRANDIE VAZQUEZ NP Date/Time of Note DATE: 05/27/18 TIME: 11:08 24 HR Interval Summary Free Text/Dictation Patient reports she is feeling much better today. Exam/Review of Systems Exam Vitals Vital Signs Date Temp Pulse Resp B/P (MAP) Pulse Ox O2 O2 Flow FiO2 Time Delivery Rate 05/27/18 87 08:01 05/27/18 97.4 18 157/94 96 07:49 (115) 05/26/18 Room Air 15:55 05/25/18 2 12:24 Intake and Output 05/26/18 05/26/18 05/27/18 1515:00 23:00 07:00 IntakeIntake Total 240 ml 960 ml 1750 ml BalanceBalance 240 ml 960 ml 1750 ml Exam No significant changes in physical exam Results Result Diagram: 05/27/18 0523 05/27/18 0523 Results 24hrs Laboratory Tests Test 05/26/18 14:27 05/26/18 19:03 05/27/18 01:02 05/27/18 05:23 Creatine Kinase 1008 H 1010 H 978 H Creatine Kinase Index 0.8 0.8 0.8 Creatinine Kinase MB 7.96 H 7.93 H 7.71 H (Mass) Troponin I < 0.012 < 0.012 < 0.012 White Blood Count 6.4 Red Blood Count 4.22 Hemoglobin 13.2 Hematocrit 39.1 Mean Corpuscular 92.7 Volume Mean Corpuscular 31.3 Hemoglobin Mean Corpuscular 33.8 Hemoglobin Concent Red Cell Distribution 13.3 Width Platelet Count 193 Mean Platelet Volume 10.3 Immature Granulocytes 0.300 % Neutrophils % 50.7 Lymphocytes % 34.4 Monocytes % 7.9 Eosinophils % 5.6 Basophils % 1.1 Nucleated Red Blood 0.0 Cells % Immature Granulocytes 0.020 # Neutrophils # 3.3 Lymphocytes # 2.2 Monocytes # 0.5 Eosinophils # 0.4 Basophils # 0.1 Nucleated Red Blood 0.0 Cells # Sodium Level 140 Potassium Level 3.7 Chloride Level 103 Carbon Dioxide Level 26 Anion Gap 11 Blood Urea Nitrogen 15 Creatinine 1.19 H Est Glomerular 46 L Filtrat Rate mL/min Glucose Level 107 Calcium Level 9.5 Phosphorus Level 2.7 Magnesium Level 2.1 Test 05/27/18 10:26 Creatine Kinase 982 H Creatine Kinase Index Pending Creatinine Kinase MB Pending (Mass) Troponin I Pending Medications Medication Current Medications IV Flush (NS 3 ml) 3 ml PER PROTOCOL IV ; Start 05/25/18 at 13:30 Ondansetron HCl (Zofran Inj) 4 mg Q6H PRN IV NAUSEA/VOMITING; Start 05/25/18 at 13:30 Aspirin (Aspirin) 81 mg DAILY PO Last administered on 05/27/18at 08:32; Admin Dose 81 MG; Start 05/26/18 at 09:00 Acetaminophen (Tylenol Tab) 650 mg Q6H PRN PO .PAIN 1-3 OR TEMP; Start 05/25/18 at 13:30 Enoxaparin Sodium (Lovenox) 40 mg DAILY SC Last administered on 05/27/18at 08:39; Admin Dose 40 MG; Start 05/26/18 at 09:00 Atorvastatin Calcium (Lipitor) 80 mg HS PO Last administered on 05/25/18at 21:05; Admin Dose 80 MG; Start 05/25/18 at 21:00; Status Hold Hydralazine HCl (Apresoline) 10 mg Q6H PRN IV SBP>160 Last administered on 05/27/18 00:39; Admin Dose 10 MG; Start 05/25/18 at 16:00 Meclizine HCl (Antivert) 12.5 mg TID PO Last administered on 05/27/18at 08:32; Admin Dose 12.5 MG; Start 05/25/18 at 21:00 Sodium Chloride 1,000 ml @ 75 mls/hr [id number] IV Last administered on 05/27/18 04:05; Admin Dose 75 MLS/HR; Start 05/26/18 at 13:00 Amlodipine Besylate (Norvasc) 2.5 mg DAILY PO Last administered on 05/27/18 08:33; Admin Dose 2.5 MG; Start 05/26/18 at 13:30 Levothyroxine Sodium (Synthroid) 150 mcg DAILY@06 PO Last administered on 05/27/18 05:19; Admin Dose 150 MCG; Start 05/27/18 at 06:00 BRENTON ARANGO MD May 27, 2018 11:11
[2018-05-27] MEDS ORDERED: AMLO2.5T78 PO (13:27)
[2018-05-27] MEDS ORDERED: MECL12.574 PO (13:27)
[2018-05-27] MEDS ORDERED: LEVO150T7 PO (13:27)
[2018-05-27] MEDS ORDERED: Work Note ×4 (13:28→13:36)
--- NOTE | 2018-05-27 13:30 | PDOCDIS ---
Discharge Instructions CONDITION [id number] Patient Condition: [id number] Stable HOME CARE INSTRUCTIONS: [id number] Diet Instructions: [id number] Low Fat /Cholesterol FOLLOW UP/APPOINTMENTS Follow-up Plan Follow-up with your primary care physician in 2 weeks. OTHER ORDERS: Other Orders: 1. Take medications as per prescription. Stop taking methimazole, instead start taking Synthroid. 2. Take a low-cholesterol diet. 3. Resume activities as tolerated. 4. Follow-up with your primary care physician in 2 weeks. 5. Please go to the nearest emergency room if you have any chest pain, dizziness, shortness of breath, focal weakness, or any other unusual signs/symptoms. BRANDIE VAZQUEZ NP May 27, 2018 13:30
--- NOTE | 2018-05-27 13:49 | DS ---
Date/Time of Note Date/Time of Note DATE: 05/27/18 TIME: 13:45 Discharge Summary Admission/Discharge Info Admit Date/Time May 25, 2018 at 12:48 Discharge Date/Time Discharge Diagnosis 1. Peripheral vertigo. 2. Rhabdomyolysis. 3. Dyslipidemia. 4. Acute kidney injury 5. Hypertension. 6. Myxedema. 7. Prediabetes. Hemoglobin A1c 6.2. 8. Obesity. BMI 31 kg/m. Patient Condition: Stable Consults 1. Stephania Rodgers MD, Neurology. 2. Mohan Perez MD, Endocrinology. Procedures Carotid Doppler Study IMPRESSION: No evidence for hemodynamically significant stenosis in the bilateral internal carotid arteries Brain MRI IMPRESSION: 1. No evidence of acute ischemia. 2. Mild microvascular ischemic disease. Hx of Present Illness This is a 62-year-old female with comorbidities including hypertension and hyperthyroidism, who came to the emergency room with chief complaint of lightheadedness that started from the evening of 05/24/2018. The patient denied any precipitating factors. The patient was complaining of some nausea. The patient denied any vomiting. The patient denied any headache. The patient was complaining of generalized body aches and generalized body cramps. The patient had difficulty in ambulation. The patient denied any speech disturbances. She denied any sore throat, fevers, or chills. The patient denied any dyspnea, chest pain, or palpitations. The patient verbalized that she has been compliant with all her medications. In the emergency room, the patient's workup showed the patient has a creatinine of 1.21 with a GFR of 45. The patient was also noticed to be hypokalemic. The patient's troponins were negative. The patient's non-fasting lipid panel was unsatisfactory with triglyceride of 288, total cholesterol of 309, and LDL of 207. The patient's brain CT scan was negative for any acute findings. The patient's chest x-ray was negative. The patient's 12-lead EKG was showing normal sinus rhythm with right axis deviation. The patient was treated with a single dose of aspirin along with potassium supplements in the emergency room. The patient had a blood pressure of 194/108 upon arrival. Hospital Course The patient was admitted to inpatient setting. A neurology consult was obtained. The patient's brain CT scan was negative. The patient's brain MRI was negative for any stroke. The patient did not have any evidence of orthostatic hypotension. The patient responded well to treatment with meclizine. The patient's symptomatology should have been most probably peripheral vertigo secondary to underlying myxedema. The patient reported a history of hyperthyroidism. However, the patient's lab studies showed evidence of hypothyroidism. Endocrinology consult was obtained. The patient was started on Synthroid and the methimazole was discontinued with improvement in the patient's symptoms. The patient had evidence of underlying myxedema. The patient had underlying significant dyslipidemia and uncontrolled hypertension because of underlying myxedema. The patient was also noticed to have rhabdomyolysis, contributed by underlying myxedema. The patient was maintained on IV fluids. The patient was initially started on statins because of dyslipidemia. However, once the patient was found to have rhabdomyolysis, this was put on hold. The patient needs treatment for her underlying myxedema currently. In the near future, the patient needs to have her thyroid function checked and may be restarted on methimazole. The patient can be started on statins once the patient's rhabdomyolysis is resolved. The patient also had evidence of underlying acute kidney injury. Nephrotoxic drugs were put on hold. The patient's renal ultrasound was negative for any medical renal disease. The patient was also incidentally noticed to have prediabetes with a hemoglobin A1c of 6.2. The patient's glycemic trends were within normal limits. The patient was advised on a low carbohydrate diet. The patient was also seen and evaluated by physical therapy. The patient's gait improved with physical therapy. The patient had a stable hospital course. The patient was cleared by consultants to be discharged home. Since the patient had significant weakness secondary to her underlying myxedema, the patient was given off from her work for at least 1 week before she can resume the work without any restrictions. Discharge Instructions 1. Take medications as per prescription. Stop taking methimazole, instead start taking Synthroid. 2. Take a low-cholesterol diet. 3. Resume activities as tolerated. 4. Follow-up with your primary care physician in 2 weeks. 5. Please go to the nearest emergency room if you have any chest pain, dizziness, shortness of breath, focal weakness, or any other unusual signs/symptoms. The patient verbalized understanding of her discharge instructions. At this time I would like to thank all the consultants for seeing the patient and providing clinical recommendations. The patient was seen in collaboration with Dr. Mendoza. [facility] [Work Note] No Conflict Check This is to certify that the patient was admitted to [facility] from 05/25/2018 to 05/27/2018. The patient can return back to work on 06/04/2018 with no restrictions. Prov:BRANDIE VAZQUEZ NP 05/27/18 Meclizine Hcl* (Antivert*) 12.5 Mg Tab, 12.5 MG PO TID, #15 TAB Prov:BRANDIE VAZQUEZ NP 05/27/18 Levothyroxine Sodium* (Levothyroxine Sodium*) 150 Mcg Tablet, 150 MCG PO DAILY@06, #20 TAB Prov:BRANDIE VAZQUEZ NP 05/27/18 Amlodipine Besylate* (Amlodipine Besylate*) 2.5 Mg Tablet, 2.5 MG PO DAILY, #30 TAB Prov:BRANDIE VAZQUEZ NP 05/27/18 Discontinued Reported Medications Methimazole* (Methimazole*) 10 Mg Tablet, 10 MG PO TID, TAB 05/25/18 Hydrochlorothiazide* (Hydrochlorothiazide*) 25 Mg Tab, 25 MG PO DAILY, #30 TAB 05/25/18 [Levothyroxine] No Conflict Check 01/07/15 [Hctz] No Conflict Check 01/07/15 Discontinued Scripts [Work Note] No Conflict Check This is to certify that the patient was admitted to [facility] from 05/25/2018 to 05/27/2018. The patient can return back to work on 06/04/2018 with no restrictions. Prov:BRANDIE VAZQUEZ NP 05/27/18 Follow-up Plan Follow-up with your primary care physician in 2 weeks. Primary Care Provider Not On Staff Doctor Time spent on discharge: > 30 minutes Pending Labs Laboratory Tests Test 05/26/18 14:27 05/26/18 19:03 05/27/18 01:02 05/27/18 05:23 Creatine 1008 1010 978 Kinase IU/L (23-200) IU/L (23-200) IU/L (23-200) Creatine Kinase 0.8 0.8 0.8 Index Creatinine 7.96 7.93 7.71 Kinase MB ng/ml (0.0-2.4) ng/ml (0.0-2.4 ng/ml (0.0-2.4 (Mass) ) ) Troponin I < 0.012 < 0.012 < 0.012 ng/ml (0.000-0. ng/ml (0.000-0 ng/ml (0.000-0 120) .120) .120) White Blood 6.4 Count 10^3/ul (4.8-1 0.8) Red Blood 4.22 Count 10^6/ul (4.20- 5.40) Hemoglobin 13.2 g/dl (12.0-16. 0) Hematocrit 39.1 % (37.0-47.0) Mean 92.7 Corpuscular fl (82.0-101.0 Volume ) Mean 31.3 Corpuscular pg (29.0-33.0) Hemoglobin Mean 33.8 Corpuscular g/dl (32.0-37. Hemoglobin Conc 0) ent Red Cell 13.3 Distribution % (11.5-14.5) Width Platelet Count 193 10^3/UL (140-4 15) Mean Platelet 10.3 Volume fl (7.4-10.4) Immature 0.300 Granulocytes % % (0.001-0.429 ) Neutrophils % 50.7 % (39.0-77.0) Lymphocytes % 34.4 % (15.0-51.0) Monocytes % 7.9 % (0.0-11.0) Eosinophils % 5.6 % (0.0-7.0) Basophils % 1.1 % (0.0-2.0) Nucleated Red 0.0 Blood Cells % /100WBC (0.0-0 .0) Immature 0.020 Granulocytes # 10^3/ul (0.0-0 .031) Neutrophils # 3.3 10^3/ul (1.6-7 .5) Lymphocytes # 2.2 10^3/ul (0.8-2 .9) Monocytes # 0.5 10^3/ul (0.3-0 .9) Eosinophils # 0.4 10^3/ul (0.0-0 .5) Basophils # 0.1 10^3/ul (0.0-0 .1) Nucleated Red 0.0 Blood Cells # 10^3/ul (0.0-0 .0) Sodium Level 140 mmol/L (135-14 4) Potassium 3.7 Level mmol/L (3.5-5. 1) Chloride Level 103 mmol/L (97-110 ) Carbon Dioxide 26 Level mmol/L (21-31) Anion Gap 11 (5-13) Blood Urea 15 Nitrogen mg/dl (7-20) Creatinine 1.19 mg/dl (0.44-1. 00) Est Glomerular 46 Filtrat mL/min (>60) Rate mL/min Glucose Level 107 mg/dl (70-220) Calcium Level 9.5 mg/dl (8.4-10. 2) Phosphorus 2.7 Level mg/dl (2.5-4.9 ) Magnesium 2.1 Level mg/dl (1.7-2.5 ) Test 05/27/18 10:26 Creatine 982 Kinase IU/L (23-200) Creatine Kinase 0.8 Index Creatinine 7.95 Kinase MB ng/ml (0.0-2.4) (Mass) Troponin I < 0.012 ng/ml (0.000-0. 120) BRANDIE VAZQUEZ NP May 27, 2018 13:49
--- NOTE | 2018-05-28 20:52 | RADRPT ---
Echocardiogram Report Patient Name: Vahid HUTCHINSONnt ID: [id number] : 1955 (62y 5m)Study Date: 05/25/2018 1:42:26 PM Gender: FAccession #: [id number] Tech: BRENDA Location: Ref.Physician: BRANDIE VAZQUEZ Height(Cm): BSA: Weight(Kg): Quality: GoodAccount #: Procedures: Echocardiographic Report: Transthoracic echocardiogram with complete 2D, M-Mode, and doppler examination. Indications: Evaluate Left Ventricular function. Measurements: 2D/M Mode Doppler Measurement Value Normal Range Measurement Value Normal Range LVIDd 2D 4.0 [ 3.8 - 5.2 ] cm SHARYN Vmax 1.9 [ 2.0 - 4.0 ] cm2 LVIDs 2D 2.7 [ 2.2 - 3.5 ] cm AV Mean Wayne 0.8 [ 70.0 - 90.0 ] cm/sec LVPWd 2D 1.0 [ 0.6 - 0.9 ] cm AV Mean PG 3.0 [ 2.0 - 4.0 ] mmHg IVSd 2D 1.3 [ 0.6 - 0.9 ] cm AV Peak Wayne 1.1 [ 100.0 - 170.0 ] cm/sec IVS/LVPW 2D 1.3 ratio AV Peak PG 5.0 [ 2.0 - 9.0 ] mmHg EF 2D 60.0 [ 54.0 - 74.0 ] percent AV VTI 21.7 cm LVOT Diam 1.8 [ 2.1 - 2.5 ] cm LVOT Peak Wayne 0.8 [ 70.0 - 110.0 ] cm/sec LVOT Area 2.5 cm2 LVOT Peak PG 3.0 [ 2.0 - 6.0 ] mmHg MV E Peak Wayne 0.6 [ 60.0 - 130.0 ] cm/sec MV A Peak Wayne 0.8 [ 100.0 - 120.0 ] cm/sec MV E/A 0.8 [ 0.8 - 1.5 ] ratio MV Decel Time 285 [ 104 - 258 ] msec Lat E` Wayne 0.1 [ 10.0 - 15.0 ] cm/sec Med E` Wayne 0.0 cm/sec MV E/A 0.8 [ 0.8 - 1.5 ] ratio TR Peak Wayne 2.0 [ 100.0 - 280.0 ] cm/sec TR Peak PG 17.0 mmHg PV Peak Wayne 0.7 [ 40.0 - 80.0 ] cm/sec PV Peak PG 2.0 mmHg RA Pressure 3.0 mmHg Findings: Left Ventricle: Normal left ventricular systolic function. Normal left ventricular cavity size. Sigmoid septum. Ejection fraction is visually estimated at 60 %. Tissue Doppler/Mitral Doppler indices are consistent with impaired relaxation (Stage I diastolic dysfunction). Right Ventricle: Normal right ventricular size. Normal right ventricular systolic function. Left Atrium: The left atrium is normal in size. Right Atrium: The right atrium is normal in size. Mitral Valve: Normal appearance and function of the mitral valve with trace physiologic regurgitation. Aortic Valve: Normal appearance of the aortic valve. No significant aortic stenosis with trivial insufficiency. Tricuspid Valve: Normal appearance of the tricuspid valve. Estimated peak PA systolic pressure 20 mmHg. There is trace tricuspid regurgitation. Pulmonic Valve: Normal pulmonic valve appearance. Pericardium: Trivial pericardial effusion. Aorta: Normal aortic root. IVC: Normal size and normal respiratory collapse consistent with normal right atrial pressure. Conclusions: Normal left ventricular systolic function. Normal left ventricular cavity size. Sigmoid septum. Ejection fraction is visually estimated at 60 %. Tissue Doppler/Mitral Doppler indices are consistent with impaired relaxation (Stage I diastolic dysfunction). Normal right ventricular size. Normal right ventricular systolic function. The left atrium is normal in size. The right atrium is normal in size. No significant valvular stenosis or regurgitation seen. Trivial pericardial effusion. Electronically Signed By: Justyn Giraldo 2018-05-28 20:51:42 PDT
== END 2018-05-27 15:08 | disposition home or self-care (01) | DRG 149 ==
LOC: E/R 09:56 → 6WM 12:48
PROVIDERS: ADMIT Internal Medicine; ATTEND Internal Medicine
DX: H81.399 Other peripheral vertigo, unspecified ear (principal); N17.9 Acute kidney failure, unspecified; M62.82 Rhabdomyolysis; I10 Essential (primary) hypertension; E05.90 Thyrotoxicosis, unspecified without thyrotoxic crisis or storm; E78.5 Hyperlipidemia, unspecified; E87.6 Hypokalemia; R73.03 Prediabetes; E03.9 Hypothyroidism, unspecified; Z98.51 Tubal ligation status; Z79.82 Long term (current) use of aspirin
CPT/HCPCS: 36415; 70450; 70551; 70553; 71045; 76775; 80048; 80061; 80307; 81001; 82550; 82553; 82962; 83036; 83735; 83880; 84100; 84439; 84443; 84484; 85025; 85610; 85730; 87086; 93005; 93306; 93880; 97162; J0360; J1650; J3480; J7030